=== PATIENT | female | born 1975 | race African-American/Black ===

== ENCOUNTER 2025-04-26 11:37 | Emergency (ER) | payer OTHER, SELFPAY ==
[2025-04-26 11:47] VITALS: BP 153/107
[2025-04-26 12:05] LABS: % Basophils 0.1 % (0-2); % Eosinophils 0.8 % (0-6); % Immature Granulocytes 0.3 % (0-0.5); % Lymphocytes 24.8 % (20.5-51.1); % Monocytes 6.5 % (1.7-9.3); % Neutrophils 67.5 % (42.2-75.2); Absolute Eosinophils 0.1 10^3/uL (0-0.7); Absolute Lymphocytes 1.8 10^3/uL (1.2-3.4); Absolute Monocytes 0.5 10^3/uL (0.1-0.6); Absolute Neutrophils 4.8 10^3/uL (1.4-6.5); Hematocrit 38.3 % (37.0-47.0); Mean Corp Hgb Conc. 31.3 g/dL (33.0-37.0); Mean Corpuscular Volume 82.9 fL (81.0-99.0); Mean Platelet Volume 9.4 fL (7.4-10.4); Nucleated Red Blood Cells % 0 %; Platelet Count 280 10^3/uL (130-400); Red Blood Cell Count 4.62 10^6/uL (4.20-5.40); Red Cell Dist. Width 12.2 % (11.5-14.5); White Blood Cell Count 7.1 10^3/uL (4.8-10.8)
[2025-04-26 12:40] LABS: ALT (SGPT) < 10 U/L (0-35); AST (SGOT) 12 U/L (14-36); Albumin 4.3 g/dl (3.5-5.0); Alkaline Phosphatase 79 U/L (38-126); Blood Urea Nitrogen 19 mg/dl (7-17); Calcium 9.4 mg/dl (8.4-10.2); Carbon Dioxide 28 mmol/L (22-30); Chloride 107 mmol/L (98-107); Glucose 93 mg/dl (70-99); Potassium 4.3 mmol/L (3.5-5.1); Sodium 140 mmol/L (135-145); Total Bilirubin 0.5 mg/dl (0.2-1.3); Total Protein 7.5 g/dl (6.3-8.2); eGFR > 60.00
--- NOTE | 2025-04-26 13:28 | EDRN ---
Pt's family member came to triage desk, states pt cannot wait, she will get a DVT, and threatened this RN with a lawsuit. There are no stretchers available other than one pt and spouse pointed out that is by from door for critical/ CPR. Set pt up
with a recliner where leg can be extended in WR.
[2025-04-26 14:33] VITALS: BMI 32.3
--- NOTE | 2025-04-26 14:37 | ED.GENMED ---
History of Present Illness
General
Chief Complaint: Post Operative Problem(s)
Source: patient and spouse
Time Seen by Provider: 04/26/25 14:19
History of Present Illness
History of Present Illness:
This patient is a 49-year-old female who had a single October 30. She noted over the last 24 hours that the area at the incision is very 'sore' rated as 7 out of 10. Her looked at the area yesterday and noted that there were
still [address]. He states that he cleaned the area with hydrogen peroxide and the Steri-Strips easily came off. They both deny noted redness, warmth, swelling, or drainage. Patient denies fever, chills, sweats, vomiting, anorexia,
chest pain, shortness of breath, vaginal area discharge. She does have slight nausea although she is also asking to eat now. Patient denies flank pain, urinary symptoms, or other complaints.
Past History
Past History
ED Past Medical History: Psychiatric
ED Past Surgical History: Gynecological
Social History
Tobacco: Non-smoker
Alcohol: None
Drug: None
Personal:
Living: with family
Phy Exam
Physical Exam
Physical Exam:
GENERAL: Alert , in no apparent distress
EYE: pupils equal and reactive
NECK: Supple, no significant adenopathy.
ENT: o/p clr, mmm.
CARDIAC: Regular rate and rhythm .
LUNGS: Clear breath sounds bilaterally, no acute respiratory distress, no wheezes/rales/rhonchi
ABDOMEN: Soft, mild lower abdominal tenderness, no r/g, no cvat
NEUROLOGICAL: Alert and oriented, no focal neuro deficits
SKIN: Warm and dry, skin intact. incision clean dry and intact, no associated redness, warmth, drainage, bleeding, tenderness
MUSCULOSKELETAL: No edema, well perfused.
PSYCH: Normal and appropriate interaction.
Course
Orders/Labs/Results
Orders:
Orders
04/26/25 11:59
Complete Blood Count/With Diff Urgent
Comprehensive Metabolic Panel Urgent
HCG, Serum Qualitative Screen Urgent
Comment: ADD ON
04/26/25 14:36
CT Abd/Pel (IV only)-DH only Urgent
Comment:
Reason For Exam: lower abd pain
04/26/25 15:26
Urinalysis Reflex To Culture Urgent
Date Specimen was Collected: 04/26/25
Time Specimen was Collected: 15:25
Urine Microscopic Reflex Cult Urgent
04/26/25 16:15
Test Result ONCE
04/26/25 16:21
Add On- LAB Urgent
Tests Added?: HCG Serum Qualitative Screen
Abnormal Lab Results
04/26/25 04/26/25
11:59 15:26
MCH 26.0 L pg
(27.0-31.0)
MCHC 31.3 L g/dL
(33.0-37.0)
BUN 19 H mg/dl
(7-17)
AST 12 L U/L
(14-36)
Urine Bacteria (Reflex) Few A
(Negative)
Urine Albumin (Reflex) 1+ A
(Neg - Trace)
04/26/25 11:59
04/26/25 11:59
Vital Signs
Initial and Last Documented VS:
Initial Vital Signs
Temp Pulse Resp BP Pulse Ox
98.2 F 82 16 153/107 98
04/26/25 11:47 04/26/25 11:47 04/26/25 11:47 04/26/25 11:47 04/26/25 11:47
Last Documented Vital Signs
Temp Pulse Resp BP Pulse Ox
98.2 F 78 18 139/89 96
04/26/25 11:47 04/26/25 14:39 04/26/25 14:39 04/26/25 14:39 04/26/25 14:39
Update Note
Update Note:
Patient presents to the Emergency Department with __'sore' at site
Number and Complexity of Problems Addressed at the Encounter
� Chronic conditions affecting care:
� Acute Exacerbation and/or Progression of Chronic Illness:
� Differential Diagnosis includes: But not limited to reactive inflammatory changes at incision, cellulitis, abscess, appendicitis, etc. etc.
Amount and/or Complexity of Data to be Reviewed and Analyzed
� I performed an independent evaluation of and my interpretation is:
EKG:
CT:Questionable cystitis.
2. section scar/defect noted. No overt fluid collections or adjacent active inflammatory change identified.
2. Moderate rectal stool bolus.
Xrays:
Laboratory Studies: Generally unremarkable, borderline prerenal azotemia
Other:
� Review of other/old records reveals:
� Clinical information was obtained by an independent historian: who is bedside
� Prescriptions/Medications Considered but not given:
� Further testing considered but not performed:
Risk of Complications and/or Morbidity or Mortality of Patient Management
� Social determinants of health affecting care:
� Discussion with other providers (PCP, Hospitalists, Consultants, etc):
� Escalation of care including admission/observation vs risk of discharge considered: Although CT describes questionable suggest cystitis, patient does not have dysuria, urgency, frequency, flank pain. Her urine is not
suspicious for UTI. Will have patient follow-up closely with her doctor regarding. Discussed with patient importance of this follow-up and reasons return to the ER.
ED Attending Note
-
Portions of this chart may have been created with voice recognition software.� Occasional wrong word or��sound alike� substitutions may have occurred due to the inherent limitations of voice recognition software.
Discharge Plan
Departure
Patient Disposition: Home (Routine Discharge)
Date of Disposition: 04/26/25
Time of Disposition: 19:15
Patient with high blood pressure during this ER visit?: Yes
Condition: Good
Discharge Problem:
Abdominal pain
Instructions: Abdominal Pain, BLOOD PRESSURE
Referrals:
Tamara Batres DO [Family Provider, Family Practice] - Follow up in 2-3 days
Activity Restrictions/Additional Instructions:
IF YOU DEVELOP FEVER, INCREASING OR NEW PAIN, BACK PAIN, CHEST PAIN, PAIN WITH URINATION, BLEEDING, GET WORSE, DO NOT GET BETTER, OR OTHER WORRISOME SIGNS, PLEASE RETURN TO THE ER IMMEDIATELY!
Interventions
Interventions:
*Risk Screen - Suicide Last Done: 04/26/25 11:47
*General Assessment Last Done: 04/26/25 14:33
*Neglect/Abuse Screening Last Done: 04/26/25 11:47
*ED- Fall Risk Assessment Last Done: 04/26/25 14:33
*ED COVID-19 Vaccine History Last Done: 04/26/25 14:33
ED-Skin Assessment Last Done: 04/26/25 14:33
Discharge Date and Time
Print Language: UKRAINIAN
[2025-04-26 14:39] VITALS: BP 139/89
[2025-04-26 15:57] LABS: Urine Albumin 1+ (Neg - Trace); Urine Bilirubin Negative (Negative); Urine Character Slightly Cloudy (Clear); Urine Color Yellow; Urine Glucose Negative (Negative); Urine Ketone Negative (Negative); Urine Leukocyte Negative (Negative); Urine Nitrite Negative (Negative); Urine Occult Blood Negative (Negative); Urine Urobilinogen 1+ (Neg - 1+)
[2025-04-26 16:27] LABS: Urine Mucus Many; Urine Red Blood Cell 0-2 /HPF (0-2); Urine Squamous Cell >30 /LPF (Few)
[2025-04-26 16:28] LABS: Urine Bacteria Few (Negative)
[2025-04-26 16:54] LABS: HCG, Serum Qualitative Screen Negative
== END 2025-04-26 19:30 | disposition home or self-care (01) ==
LOC: EMR 11:37
PROVIDERS: Student in an Organized Health Care Education/Training Program; EMERGENCY PHYSICIAN Emergency Medicine; FAMILY PHYSICIAN Student in an Organized Health Care Education/Training Program
DX: R10.9 Unspecified abdominal pain (principal); R11.0 Nausea
CPT/HCPCS: 99284; 74177; 80053; 81003; 81015; 84703; 85025; Q9967